=== PATIENT | male | born 1985 | race Caucasian/White ===

== ENCOUNTER 2018-12-10 18:23 | Emergency (ER) | payer BC ==
[2018-12-10 18:49] VITALS: RESP 16; TEMP 98.2; O2SAT 99
[2018-12-10 19:04] VITALS: BP 146/85; PULSE 81
== END 2018-12-10 19:00 | disposition home or self-care (01) ==
LOC: ED 18:23
DX: K64.5 Perianal venous thrombosis (principal)
CPT/HCPCS: 99282